=== PATIENT | female | born 1985 | race Caucasian/White ===

== ENCOUNTER 2016-08-27 11:20 | Emergency (ER) | payer BC, OTHER ==
[2016-08-27 13:30] VITALS: BP 126/80
--- NOTE | 2016-08-27 14:02 | RAD ---
HISTORY: Pain and injury, rule out fracture, left ankle COMPARISONS: August 08, 2006 VIEWS: 3, Frontal, lateral, and oblique views of the left ankle FINDINGS: BONE DENSITY: Normal. BONES: There are well-corticated bone fragments of the lateral malleolus consistent with remote avulsion injury. There is no acute displaced fracture . JOINTS: There is no arthropathy. ALIGNMENT: There is no dislocation. SOFT TISSUES: Unremarkable. OTHER FINDINGS: None. IMPRESSION: NO ACUTE OSSEOUS INJURY. IF SYMPTOMS PERSIST, RECOMMEND REPEAT IMAGING.
--- NOTE | 2016-08-27 14:31 | UC ---
Lower Extremity/Ankle HPI - History of Current Complaint Chief Complaint: UCLowerExtremity Stated Complaint: ANKLE INJURY Time Seen by Provider: 08/27/16 13:47 Hx Last Menstrual Period: last week - Allergies/Home Medications Allergies/Adverse Reactions: Allergies Allergy/AdvReac Type Severity Reaction Status Date / Time Cephalexin [From Keflex] Allergy Hives Verified 08/27/16 13:22 Penicillins [PCN] Allergy Rash Verified 08/27/16 13:22 Sulfa Antibiotics Allergy See Comment Verified 08/27/16 13:22 Home Medications: Home Medications Albuterol Sulfate [Proair Respiclick] 2 PO PRN 08/27/16 [History] Cyanocobalamin [B-12 Compliance Injection] 08/27/16 [History] Levocetirizine Dihydrochloride [Xyzal Allergy 24Hr] 5 mg PO DAILY 08/27/16 [ History Confirmed 08/27/16] Montelukast Sodium TAB* [Singulair 10 MG TAB*] 10 mg PO DAILY 08/27/16 [History Confirmed 08/27/16] Norgestimate-Eth Estradiol(NF) [Ortho Tri-Cyclen (NF)] 1 tab PO DAILY 08/27/16 [ History Confirmed 08/27/16] Ranitidine HCl [Zantac 150 Maximum Streng] 150 mg PO DAILY 08/27/16 [History Confirmed 08/27/16] PMH/Surg Hx/FS Hx/Imm Hx - Surgical History Surgical History: None - Social History Alcohol Use: Rare Substance Use Type: None Smoking Status (MU): Never Smoked Tobacco Physical Exam Vital Signs: Initial Vital Signs Temp 97.7 F 08/27/16 13:26 Pulse 83 08/27/16 13:26 Resp 16 08/27/16 13:26 BP 126/80 08/27/16 13:26 Pulse Ox 100 08/27/16 13:26 Diagnostics - Radiology left ankle Xray Interpretation: No Acute Changes - no acute osseous injury, if symptoms persist recommend repeat imaging Radiology Interpretation Completed By: Radiologist Lower Extremity Course/Dx - Differential Dx/Diagnosis Differential Diagnosis/HQI/PQRI: Contusion, Dislocation, Fracture (Open), Sprain , Strain Provider Diagnoses: left ankle sprain Discharge - Discharge Plan Condition: Stable Disposition: HOME Patient Education Materials: Ankle Sprain (ED) Additional Instructions: Continue taking ibuprofen or aleve to help with pain and inflammation. Wear brace and use crutches for next 1-2 weeks while symptoms persist. Rest, ice and elevate leg. If symptoms do not improve or worsen please return or seek medical attention. Follow up with PCP.
== END 2016-08-27 15:10 | disposition home or self-care (01) ==
LOC: UCEAST 11:20
DX: S93.402A Sprain of unspecified ligament of left ankle, initial encounter (principal); X58.XXXA Exposure to other specified factors, initial encounter; Z88.3 Allergy status to other anti-infective agents; Z88.0 Allergy status to penicillin
CPT/HCPCS: 99212; G0463